=== PATIENT | female | born 1945 | race African-American/Black ===

== ENCOUNTER → 2019-02-15 12:06 | Outpatient (CLI) | payer OTHER | END | disposition home or self-care (01) | LOC: LAB 12:06 | DX: E78.2 Mixed hyperlipidemia (principal); E11.65 Type 2 diabetes mellitus with hyperglycemia; D64.89 Other specified anemias; Z12.11 Encounter for screening for malignant neoplasm of colon; N39.0 Urinary tract infection, site not specified; E03.8 Other specified hypothyroidism; J45.998 Other asthma; I25.110 Atherosclerotic heart disease of native coronary artery with unstable angina pectoris ==

== ENCOUNTER 2019-02-16 09:00 | Outpatient (CLI) | payer OTHER | END 2019-02-16 09:03 | disposition home or self-care (01) | LOC: LAB 09:00 | DX: E11.65 Type 2 diabetes mellitus with hyperglycemia (principal); E78.2 Mixed hyperlipidemia; D64.89 Other specified anemias; Z12.11 Encounter for screening for malignant neoplasm of colon; N39.0 Urinary tract infection, site not specified; E03.8 Other specified hypothyroidism ==